=== PATIENT | male | born 1990 | race Caucasian/White ===

== ENCOUNTER 2023-01-25 16:03 | Emergency (ER) | payer MEDICAID, SELFPAY ==
[2023-01-25 16:05] VITALS: BP 141/95; PULSE 113; RESP 16; TEMP 36.3; O2SAT 99; BMI 24.4
--- NOTE | 2023-01-25 16:37 | EDS_ITS ---
HPI <NATTY Hatch - Last Filed: 01/25/23 18:30> History of Present Illness Chief Complaint: Substance Abuse Narrative Narrative: Patient presenting today requesting to detox from alcohol. He has never detoxed in the past and was sent in per request from his fisheries technical officer. He reports that he drinks about a sixpack of tall boys 3 times per week and has been doing that since about September. He last drank last night and reports he also used meth last night which he has not done in several months. He denies a history of withdrawal seizures. He does not have a PMH of any chronic health conditions. He denies any fever, chills, chest pain, abdominal pain, nausea, vomiting. PFSH <NATTY Hatch - Last Filed: 01/25/23 18:30> PFSH Home Medications NK 01/25/23 [History Last Taken Unknown] Allergy/AdvReac Type Severity Reaction Status Date / Time No Known Allergies Allergy Verified 01/25/23 16:05 Social History Smoking Status: Current every day smoker tobacco type: cigarettes ROS <NATTY Hatch - Last Filed: 01/25/23 18:30> ROS ED Constitutional Constitutional ED: Denies chills or fever(s) Cardiovascular Cardiovascular: Denies chest pain Respiratory/Chest Respiratory/Chest: Denies cough or dyspnea Gastrointestinal Gastrointestinal: Denies abdominal pain, nausea or vomiting Genitourinary Genitourinary ED: Denies dysuria, hematuria or urinary urgency Musculoskeletal Musculoskeletal: Denies arthralgias or myalgias Integumentary Denies rash Neurologic Neurologic: Denies weakness Psychiatric Psychiatric: Denies anxiety, depression, suicidal ideation or suicidal thoughts EXAM <NATTY Hatch - Last Filed: 01/25/23 18:30> Physical Exam Const Vital Signs: 01/25/23 16:05 Temperature 97.4 F L Temperature Source Temporal Pulse Rate 113 H Respiratory Rate 16 Blood Pressure 141/95 H Blood Pressure Mean 110 Pulse Ox 99 Oxygen Delivery Method Room Air Positive well nourished, well developed and no apparent distress General Appearance ED: well developed HEENT Reports normocephalic and head/scalp atraumatic Mouth ED: Yes moist mucous membranes normal Eyes PERRL and EOMs intact bilaterally Neck full ROM and supple Chest Wall inspection of chest normal Resp normal respiratory effort and clear to auscultation bilaterally Cardio regular rate and regular rhythm GI soft to palpation, non-tender, non-distended and no masses Back/Spine normal ROM and normal to inspection Extremity normal to inspection and full ROM Neuro oriented x3, CN's II-XII intact bilaterally, moves all extremities, no focal motor deficits and no sensory deficits noted Sensorium / Orientation: awake and alert Psych mental status grossly normal and thought process normal Skin no rashes or lesions noted and no wounds <Dr. Waylon Nelson MD - Last Filed: 01/25/23 23:27> Physical Exam Const Vital Signs: 01/25/23 16:05 Temperature 97.4 F L Temperature Source Temporal Pulse Rate 113 H Respiratory Rate 16 Blood Pressure 141/95 H Blood Pressure Mean 110 Pulse Ox 99 Oxygen Delivery Method Room Air MDM <NATTY Hatch - Last Filed: 01/25/23 18:30> [facility] MDM Narrative Medical decision making narrative: Patient presenting today requesting to detox from alcohol. He is well-appearing and in no acute distress, he drinks about 3 times a week and last drink last night. He was sent in per request of his fisheries technical officer. He has never detoxed in the past, no history of withdrawal seizures. He reports that he is not in withdrawal currently and does not suffer from alcohol withdrawal. He does not get night sweats, anxiety, tremors, nausea, or vomiting when he does not drink. He is slightly tachycardic here but otherwise vitals are unremarkable. Labs were obtained per inpatient detox protocol, however, I do not feel that he meets criteria for inpatient detox and patient feels the same way. Social work did come and discuss outpatient options with him and gave him resources for 180 so that he can detox as an outpatient. Patient is comfortable with this plan. He will be discharged home in stable condition. Lab Data Attestation: I reviewed the patient's lab results. Labs: Laboratory Results - last 24 hr 01/25/23 01/25/23 16:45 17:50 WBC 10.9 RBC 4.65 Hgb 15.4 Hct 43.0 MCV 92.5 MCH 33.1 H MCHC 35.8 RDW Std Deviation 41.7 RDW Coeff of Leeanna 12.1 Plt Count 293 MPV 10.0 Immature Gran % (Auto) 0.200 Neut % (Auto) 68.3 Lymph % (Auto) 18.9 L Dane % (Auto) 11.1 H Eos % (Auto) 1.0 Baso % (Auto) 0.5 Absolute Neuts (auto) 7.5 Absolute Lymphs (auto) 2.06 Nucleated RBC % 0 Sodium 138 Potassium 3.6 Chloride 105 Carbon Dioxide 27.0 Anion Gap 6 BUN 10 Creatinine 0.83 Estim Creat Clear Calc 141.54 Est GFR (MDRD) Af Amer 139 Est GFR (MDRD) Non-Af 115 BUN/Creatinine Ratio 12.1 Glucose 92 Calcium 9.0 Total Bilirubin 0.40 AST 15 ALT 26 Alkaline Phosphatase 58 Total Protein 7.5 Albumin 3.9 Globulin 3.6 Albumin/Globulin Ratio 1.1 Urine Opiates Screen NEGATIVE Urine Methadone Screen NEGATIVE Ur Barbiturates Screen NEGATIVE Ur Phencyclidine Scrn NEGATIVE Ur Amphetamines Screen POSITIVE H MDMA (Ecstasy) Screen NEGATIVE U Benzodiazepines Scrn NEGATIVE Urine Cocaine Screen NEGATIVE U Cannabinoids Screen NEGATIVE Ur Drug Screen Comment Ethyl Alcohol 4.0 <Dr. Waylon Nelson MD - Last Filed: 01/25/23 23:27> [facility] MDM Narrative Medical decision making narrative: Patient presenting today requesting to detox from alcohol. He is well-appearing and in no acute distress, he drinks about 3 times a week and last drink last night. He was sent in per request of his fisheries technical officer. He has never detoxed in the past, no history of withdrawal seizures. He reports that he is not in withdrawal currently and does not suffer from alcohol withdrawal. He does not get night sweats, anxiety, tremors, nausea, or vomiting when he does not drink. He is slightly tachycardic here but otherwise vitals are unremarkable. Labs were obtained per inpatient detox protocol, however, I do not feel that he meets criteria for inpatient detox and patient feels the same way. Social work did come and discuss outpatient options with him and gave him resources for 180 so that he can detox as an outpatient. Patient is comfortable with this plan. He will be discharged home in stable condition. Patient seen and evaluated with ROSE. I personally interviewed and examined the patient. I was involved in all aspects of patient's orders, interpretation of results, and treatment. Patient states he was told by his credit officer to come in. He drinks 2-3 times a week. He has a poor office because of issue with vandalism. He has no symptoms of withdrawal. He is not complaining of palpitations, fast heart rate, tremors etc. Patient's heart rate initially is elevated 113. On exam he is not tachycardic. HEENT exam is unremarkable. Lungs are clear to auscultation. Abdomen is soft nontender. He is not hyperreflexic. Has no clonus. His neck negative Babinski sign. There is no dysmetria. There is no nystagmus. Multiple attempts were made to contact the parole office. Case management was contacted to help contact the parole office. Patient does not meet criteria for inpatient detox since he does not drink on a regular basis. He is a candidate for outpatient and appropriate information was given to him. Lab Data Labs: Laboratory Results - last 24 hr 01/25/23 01/25/23 16:45 17:50 WBC 10.9 RBC 4.65 Hgb 15.4 Hct 43.0 MCV 92.5 MCH 33.1 H MCHC 35.8 RDW Std Deviation 41.7 RDW Coeff of Leeanna 12.1 Plt Count 293 MPV 10.0 Immature Gran % (Auto) 0.200 Neut % (Auto) 68.3 Lymph % (Auto) 18.9 L Dane % (Auto) 11.1 H Eos % (Auto) 1.0 Baso % (Auto) 0.5 Absolute Neuts (auto) 7.5 Absolute Lymphs (auto) 2.06 Nucleated RBC % 0 Sodium 138 Potassium 3.6 Chloride 105 Carbon Dioxide 27.0 Anion Gap 6 BUN 10 Creatinine 0.83 Estim Creat Clear Calc 141.54 Est GFR (MDRD) Af Amer 139 Est GFR (MDRD) Non-Af 115 BUN/Creatinine Ratio 12.1 Glucose 92 Calcium 9.0 Total Bilirubin 0.40 AST 15 ALT 26 Alkaline Phosphatase 58 Total Protein 7.5 Albumin 3.9 Globulin 3.6 Albumin/Globulin Ratio 1.1 Urine Opiates Screen NEGATIVE Urine Methadone Screen NEGATIVE Ur Barbiturates Screen NEGATIVE Ur Phencyclidine Scrn NEGATIVE Ur Amphetamines Screen POSITIVE H MDMA (Ecstasy) Screen NEGATIVE U Benzodiazepines Scrn NEGATIVE Urine Cocaine Screen NEGATIVE U Cannabinoids Screen NEGATIVE Ur Drug Screen Comment Ethyl Alcohol 4.0 Discharge Plan Triage Chief Complaint: Substance Abuse ED Midlevel Provider: Araceli Walker ED Provider: Waylon Nelson Dx/Rx/DC Orders Clinical Impression: Alcohol abuse, Drug abuse Instructions: Addiction: Getting Help, ED Alcohol Abuse Prescriptions: No Action NK Primary Care Provider: Care Physician,No Primary Referrals: Care Physician,No Primary [Primary Care Provider] - Activity Restrictions/Additional Instructions: Please follow-up with 180. Disposition Disposition: Home, Self Care Discharge Date/Time: 01/25/23 18:34
[2023-01-25 16:59] LABS: Absolute Lymphocyte Count 2.06 X10^3/uL (0.83-4.51); Absolute Neutrophil Count 7.5 X10^3/uL (2.0-7.7); Basophil# 0.06 X10^3/uL; Basophil% 0.5 % (0-1); Eosinophil# 0.11 X10^3/uL; Hemoglobin 15.4 g/dL (13.0-16.5); Lymphocyte # 2.06 X10^3/ul (0.83-4.51); Lymphocyte % 18.9 % (19-41); Mean Corp Hgb Conc 35.8 g/dL (32-36); Mean Corpuscular Hgb 33.1 pg (27.0-32.0); Mean Corpuscular Volume 92.5 fL (80-94); Monocyte# 1.21 X10^3/uL; Monocyte% 11.1 % (0-10); NRBC Flagged by Analyzer 0 % (0-5); Neutrophil # 7.45 X10^3/uL (2.7-7.7); Neutrophil % 68.3 % (47-70); Platelet Count 293 K/mm3 (150-450); RBC Distribution Width CV 12.1 % (11.6-14.6); RBC Distribution Width SD 41.7 fl (35.1-43.9); Red Blood Count 4.65 M/mm3 (4.6-6.2); White Blood Count 10.9 K/mm3 (4.4-11.0)
[2023-01-25 17:12] LABS: ALB/GLOB Ratio 1.1 RATIO (0.9-2.4); AST(SGOT) 15 U/L (15-37); Alanine Aminotransfer ALT/SGPT 26 U/L (16-61); Albumin, Serum 3.9 g/dL (3.2-5.0); Alkaline Phosphatase 58 U/L (45-117); Anion Gap 6 (5-15); BUN 10 mg/dL (7-18); BUN/Creat Ratio 12.1 RATIO (10-20); Chloride 105 mmol/L (98-107); Creatinine, Serum 0.83 mg/dL (0.70-1.30); EST Glomerular Filtration Rate 115 mL/min (>60); Est Glom Filt Rate - Afr Amer 139 mL/min (>60); Estimated Creatinine Clearance 141.54 ml/min; Globulin 3.6 g/dL (2.2-4.2); Glucose 92 mg/dL (74-106); Potassium 3.6 mmol/L (3.5-5.1); Protein, Total 7.5 g/dL (6.4-8.2); Sodium Level 138 mmol/L (136-145)
[2023-01-25 18:11] LABS: Amphetamine Urine VISTA POSITIVE (<1000 ng/mL); Barbiturate Urine VISTA NEGATIVE (< 200 ng/mL); Benzodiazepine Urine VISTA NEGATIVE (< 200 ng/mL); Cocaine Urine VISTA NEGATIVE (< 300 ng/mL); Ecstacy Urine VISTA NEGATIVE (< 500 ng/mL); Methadone Urine VISTA NEGATIVE (< 300 ng/mL); PCP Urine VISTA NEGATIVE (< 25 ng/mL); THC Urine VISTA NEGATIVE (< 50 ng/mL); Vista UDS pH Range 7
--- NOTE | 2023-01-25 18:34 | CM.ED ---
Social Work SW introduced self and role to patient. Pt does not meet criteria for inpatient detox. Pt's head correction officer sent patient for detox due to drinking. Pt drinks 3 times a week and denies withdrawal symptoms when not drinking. SW discussed substance abuse with patient and provided addiction education. SW provided patient with coping skills for managing addiction and one-eighty handouts. Pt reports he currently is in treatment and goes to [facility]. SW provided positive reinforcement and encouragement. Larissa Spence [employer]SEM[employer]ER, SECONDARY SET UP MAN
== END 2023-01-25 18:34 | disposition home or self-care (01) ==
PROVIDERS: Physician Assistant; Emergency Provider Emergency Medicine; Visit Provider Emergency Medicine
DX: F10.10 Alcohol abuse, uncomplicated (principal); F15.10 Other stimulant abuse, uncomplicated; F17.210 Nicotine dependence, cigarettes, uncomplicated
CPT/HCPCS: 80053; 80307; 82077; 85025; 99282

== ENCOUNTER 2023-02-15 11:39 | Emergency (ER) | payer BC, MEDICAID, SELFPAY ==
[2023-02-15 11:41] VITALS: BP 127/81; PULSE 88; RESP 16; TEMP 36.2; O2SAT 99; BMI 24.9
--- NOTE | 2023-02-15 11:50 | EX.ED.DYSGE1 ---
HPI History of Present Illness Chief Complaint: Cough Informant: patient Narrative Narrative: 32-year-old male presenting to the emergency department for the chief complaint of cough and sore throat. Patient states that 2 days ago he woke with subjective fever chills and has subsequently developed a cough and sore throat. He notes that the cough is productive of brown sputum. He is a smoker. He notes that his sister has bronchitis and his 2 children have been diagnosed with [id number]. He denies any rhinorrhea. No vomiting or diarrhea. He denies any rashes. He has been able to hydrate. He states that his daughter was tested for COVID and was negative. PFSH PFSH Medical History no medical history no medical history Home Medications NK 01/25/23 [History Last Taken Unknown] Allergy/AdvReac Type Severity Reaction Status Date / Time No Known Allergies Allergy Verified 02/15/23 11:41 Surgical History (Updated 02/15/23 @ 11:[address] Jama Hanley DO) History of hand surgery Social History Smoking Status: Current every day smoker tobacco type: cigarettes ROS ROS ED Constitutional Constitutional ED: Reports chills, fever(s) and subjective; Denies weight loss Eyes Eyes: Denies change in vision or diplopia ENT ENT ED: Reports sore throat; Denies ear pain or rhinorrhea Cardiovascular Cardiovascular: Denies chest pain, orthopnea, palpitations or racing heartbeat Respiratory/Chest Respiratory/Chest: Reports cough and sputum; Denies dyspnea or orthopnea Gastrointestinal Gastrointestinal: Denies abdominal pain, constipation, diarrhea, nausea or vomiting Genitourinary Genitourinary ED: Denies dysuria, hematuria or urinary frequency Musculoskeletal Musculoskeletal: Denies arthralgias or myalgias Integumentary Denies abscess or rash Neurologic Neurologic: Denies headache(s) or weakness Psychiatric Psychiatric: Denies anxiety, depression, suicidal ideation or suicidal thoughts Endocrine Endocrinology: Denies polydipsia, polyphagia or polyuria Allergic/Immunologic Allergic/Immunologic ED: Denies mouth swelling, tongue swelling or urticaria EXAM Physical Exam Const Vital Signs: 02/15/23 11:41 Temperature 97.1 F L Temperature Source Temporal Pulse Rate 88 Respiratory Rate 16 Blood Pressure 127/81 H Blood Pressure Mean 96 Pulse Ox 99 Oxygen Delivery Method Room Air Positive well nourished and well developed General Appearance ED: well developed HEENT Reports normocephalic, head/scalp atraumatic and moist mucous membranes HEENT Narrative: Pharyngeal erythema. No peritonsillar or retropharyngeal abscess noted. Eyes PERRL and EOMs intact bilaterally Neck supple and no JVD Neck Narrative: Few scattered less than half centimeter anterior lymph nodes which are mildly tender Resp normal respiratory effort Resp Narrative: Rhonchi at base which clears with cough Auscultation: Negative for wheezes Cardio regular rate, regular rhythm and no murmurs GI normal to inspection, nondistended, normoactive bowel sounds and non-tender Palpation: soft Back/Spine no CVA tenderness and normal ROM Extremity normal to inspection General Extremety ED: Negative for edema General Extremity: Negative for edema Neuro oriented x3 and CN's II-XII intact bilaterally Sensorium / Orientation: alert Motor Exam: strength 5/5 throughout Psych mental status grossly normal Mood & Affect: Negative for depressed or tearful Skin no rashes or lesions noted and no wounds MDM MDM MDM Narrative Medical decision making narrative: My interpretation of the chest x-ray is no acute process. The patient has been exposed with several family members that have viral illnesses. He is presenting with pharyngeal erythema and cough without evidence of infiltrate. His vital signs are stable I think most likely he is also suffering from a viral infection. Treatment will be supportive care. This time I do not see benefit of antibiotics. Discharge Plan Triage Chief Complaint: Cough Other Complaint: Sore Throat ED Provider: Jama Hanley Dx/Rx/DC Orders Prescriptions: No Action NK Primary Care Provider: Care Physician,No Primary Referrals: Care Physician,No Primary [Primary Care Provider] -
--- NOTE | 2023-02-15 11:53 | RAD_ITS ---
STUDY: X-RAY CHEST REASON FOR EXAM: Male, 32 years old. 2 day history of cough and sore throat. TECHNIQUE: Single AP portable view of the chest. COMPARISON: None. FINDINGS: The lungs are clear and expanded. There is no demonstrated pleural abnormality. Normal size heart. Normal mediastinum and adis. Normal visualized pulmonary arteries. Normal visualized aortic arch and descending thoracic aorta. Normal visualized thoracic spine. Normal visualized ribs, clavicles, and shoulders. There is no demonstrated abnormality of the visualized soft tissue structures of the upper abdomen. RAD/Chest 1 View (Portable) IMPRESSION: Normal x-ray examination of the chest. Electronically Signed: Bassem Saldivar MD at 12:04 EDT ,
== END 2023-02-15 12:07 | disposition home or self-care (01) ==
PROVIDERS: Emergency Provider Emergency Medicine; Visit Provider Emergency Medicine
DX: J02.9 Acute pharyngitis, unspecified (principal); F17.210 Nicotine dependence, cigarettes, uncomplicated
CPT/HCPCS: 71045; 99283